=== PATIENT | female | born 1970 | race Caucasian/White ===

== ENCOUNTER 2019-09-19 10:09 | Emergency (ER) | payer OTHER ==
[~2019-09-19] VITALS: Ht 154.9 cm; Wt 72.6 kg
[2019-09-19 10:15] VITALS: Ht 154.9 cm; Wt 72.6 kg
[2019-09-19 11:20] VITALS: BP 142/93
== END 2019-09-19 11:20 | disposition home or self-care (01) ==
LOC: ED 10:09
DX: S39.012A Strain of muscle, fascia and tendon of lower back, initial encounter (principal); X58.XXXA Exposure to other specified factors, initial encounter; Y93.89 Activity, other specified; Y92.89 Other specified places as the place of occurrence of the external cause; Y99.8 Other external cause status
CPT/HCPCS: J1885